=== PATIENT | male | born 1930 | race Caucasian/White ===

== ENCOUNTER 2017-01-10 14:35 | Observation (INO) | payer OTHER ==
[~2017-01-10] VITALS: Ht 170.2 cm; Wt 58.0 kg
[~2017-01-10 14:35] MED LIST: ALLO100T PO; CEPH500; DIGO.125 PO; ISOS30TA3 PO; LOVA20TA PO; MOME0.05 TOP; NITR0.4S SL; OFLO.3%A AU; OMPR20CCR PO; PROS5TAB2 PO; TAMS0.4C67 PO; TYLE3 PO
[2017-01-10 15:44] VITALS: BP 102/52; PULSE 59; RESP 18; TEMP 97.9; O2SAT 95
[2017-01-10] MEDS ORDERED: SODIUM CHLORIDE 0.9% FLUSH 10 ML FLUSH IVF PRN (15:45)
[2017-01-10 15:53] VITALS: RESP 17; O2SAT 96
[2017-01-10] MEDS ORDERED: ASPIRIN 325 MG TAB PO ONE (16:00)
--- NOTE | 2017-01-10 16:01 | PD ---
HPI Chief Complaint: Chest Pain Time Seen by Provider: 15:56 Travel History International Travel<30 days: No Contact w/Intl Traveler<30days: No Traveled to known affect area: No History of Present Illness HPI 86-year-old male that presents to the ED for evaluation of left sided chest pain. Patient came here via [facility] for evaluation of this. Patient has a significant history of heart disease having had a pacemaker as well as the fibular in place. Patient follows with Dr. Cruz. He has not seen the doctor for about 6 months. Per patient today will he was at syn[employer] he developed a severe debilitating left-sided chest pain that made him feel like he was about to passout. Per patient he did not loss consciousness. Patient gave himself a nitroglycerin was able to get out of the synagogue by himself. Ambulance was contacted and they brought him here. Ambulance gave another nitro with good resolution of the pain but did bring the blood pressure down to the gave her some fluids. Patient was not given any aspirin secondary to GI upset from aspirin. Currently patient states that his pain is minimal. He denies any shortness of breath. Denies any his head. States not taking any blood thinners. Denies any other medical problems. Denies sensation of that the defibrillator is going off. Per patient the chest pain started during synagogue about almost 2 hours ago. Patient states that he's had this chest pain before secondary to heart problems. He has no allergies to medication. He denies any other medical problem. No recent travel. No fevers chills or sweats. No nausea or vomiting. Per patient he did had sweats during the episode. PFSH Past Medical History Hx Anticoagulant Therapy: Yes Arthritis: Yes Heart Rhythm Problems: Yes (DEFIBRILLATOR) Cancer: Yes (RIGHT CHEEK REMOVED JUN 2015) Cardiac Catheterization: Yes Cardiovascular Problems: Yes (PACER) High Cholesterol: Yes Chest Pain: No Congestive Heart Failure: No Cerebrovascular Accident: No (TIA) Diabetes: Yes (BORDERLINE TYPE 11) Diminished Hearing: Yes (HEARING AID) Gastrointestinal Disorders: Yes (GERD) Glaucoma: No Hepatitis: No Hiatal Hernia: No Hypertension: Yes Reproductive: Yes (ENLARGED PROSTATE) Integumentary: No Renal Failure: Yes Thyroid Disease: No Past Surgical History Cardiac Surgery: Yes Coronary Artery Bypass Graft: No Genitourinary Surgery: Yes Pacemaker: Yes ([employer] MODEL# [id number] Serial# [id number]) Social History Alcohol Use: No Tobacco Use: No Substance Use: No Allergies-Medications (Allergen,Severity, Reaction): Coded Allergies: No Known Allergies (Verified , 01/10/17) Reported Meds & Prescriptions Reported Meds & Active Scripts Active Keflex 500 mg Cap (Cephalexin Monohydrate) 500 Mg Cap 500 Mg .XX TID Tylenol #3 (Acetaminophen/Codeine Phosphate) 1 Tab Tab 1 Tab PO Q4H PRN Reported Floxin (Ofloxacin) 0.3 % Soln 10 Drop AU BID 10 Days Elocon Cream (Mometasone Furoate) 0.1 % Cr 1 Applic TOP DAILY Lovastatin 20 Mg Tab 20 Mg PO HS Proscar (Finasteride) 5 Mg Tab 5 Mg PO DAILY Prilosec 20 Mg Cap (Omeprazole) 20 Mg Capcr 20 Mg PO DAILY Allopurinol 100 Mg Tab 100 Mg PO DAILY Flomax (Tamsulosin HCl) 0.4 Mg Cap 0.4 Mg PO HS Isosorbide Mononitrate Er (Isosorbide Mononitrate) 30 Mg Tab 30 Mg PO DAILY Nitrostat (Nitroglycerin) 0.4 Mg Subl 0.4 Mg SL DIRECTED 1 TAB SL EVERY 5 MINS X 3 PRN CHEST PAIN Lanoxin (Digoxin) 0.125 Mg Tab 0.125 Mg PO DAILY Review of Systems General / Constitutional: No: Fever, Chills, Weight Gain, Weight Loss, Other Eyes: No: Diploplia, Blurred Vision, Photophobia, Drainage, Redness, Foreign Body Sensation, Pain, Tearing, Blind Spots, Visual changes, Blindness, Other HENT: No: Headaches, Vertigo, Lightheadedness, Sore Throat, Rhinitis, Rhinorrhea, Congestion, Nosebleed, Neck Stiffness, Neck Pain, Masses, Gingival Bleeding, Dental Difficulties, Ear Discharge, Earache, Other Cardiovascular: Positive: Chest Pain or Discomfort, Diaphoresis, Syncope, No: Palpitations, Irregular Rhythm, Tachycardia, Dyspnea on exertion, Varicosities, Edema, Cyanosis, Varicosities, Phlebitis, Claudication, Other Respiratory: No: Cough, Shortness of Breath, Wheezing, Sneezing, Orthopnea, Hemoptysis, Stridor, Night Sweats, Pleuritic Pain, Other Gastrointestinal: No: Nausea, Vomiting, Diarrhea, Abdominal Pain, Hematemesis, Hematochezia, Constipation, Changes in Bowel Habits, Indigestion, Dysphagia, Loss of Appetite, Other Genitourinary: No: Urgency, Frequency, Dysuria, Nocturia, Hematuria, Decreased Urinary Output, Oliguria, Hesitancy, Dribbling, Incontinence, Pelvic Pain, Flank Pain, Dyspareunia, Discharge, Dysmenorrhea, Menorrhagia, Metorrhagia, Vaginal Bleeding, Other Musculoskeletal: No: Myalgias, Arthralgias, Limited ROM, Weakness, Cramping, Edema, Pain, Atrophy, Other Skin: No Rash, No Itching, No Dryness, No Lumps, No Hives, No Change in Pigmentation, No Change in nails, No Alopecia, No Lesions, No Breast Lumps, No Breast Tenderness, No Breast Swelling, No Other Neurologic: No: Weakness, Dizziness, Syncope, Focal Abnormalities, Coordination Problem, Tremor, Ataxia, Headache, Change in Mentation, Slurred Speech, Paresthesia, Incontinence, Seizures, Sensory Disturbance, Other Psychiatric: No: Anxiety, Depression, Suicidal Ideations, Disorder of Thought, Mood Disorder, Substance Abuse, Homicidal Ideation, Other Endocrine: No: Heat Intolerance, Cold Intolerance, Polyuria, Polydipsia, Other Hematologic/Lymphatic: No: Easy Bruising, Lymph Node Enlargement, Other Physical Exam Narrative GENERAL: SKIN: Warm and dry. HEAD: Atraumatic. Normocephalic. EYES: Pupils equal and round. No scleral icterus. No injection or drainage. ENT: No nasal bleeding or discharge. Mucous membranes pink and moist. Tongue is midline. No uvula deviation. NECK: Trachea midline. No JVD. CARDIOVASCULAR: Regular rate and rhythm. No obvious murmurs, S3, S4. Chest pain is not reproducible with touch. RESPIRATORY: No accessory muscle use. Clear to auscultation. Breath sounds equal bilaterally. GASTROINTESTINAL: Abdomen soft, non-tender, nondistended. Hepatic and splenic margins not palpable. MUSCULOSKELETAL: Extremities without clubbing, cyanosis, or edema. No obvious deformities. Full range of motion of the upper and lower extremities bilaterally. 2+ pulses bilaterally. NEUROLOGICAL: Awake and alert. No obvious cranial nerve deficits. Motor grossly within normal limits. Five out of 5 muscle strength in the arms and legs. Normal speech. PSYCHIATRIC: Appropriate mood and affect; insight and judgment normal. Data Data Last Documented VS Vital Signs Date Time Temp Pulse Resp B/P Pulse Ox O2 Delivery O2 Flow Rate FiO2 01/10/17 15:53 96 Room Air 01/10/17 15:53 17 01/10/17 15:44 97.9 59 102/52 Orders Electrocardiogram (01/10/17 15:45) Basic Metabolic Panel (Bmp) (01/10/17 15:45) B-Type Natriuretic Peptide (01/10/17 15:45) Ckmb (Isoenzyme) Profile (01/10/17 15:45) Complete Blood Count With Diff (01/10/17 15:45) Magnesium (Mg) (01/10/17 15:45) Prothrombin Time / Inr (Pt) (01/10/17 15:45) Act Partial Throm Time (Ptt) (01/10/17 15:45) Troponin I (01/10/17 15:45) Chest, Single Ap (01/10/17 15:45) Ecg Monitoring (01/10/17 15:45) Bilateral Bp Monitoring (01/10/17 15:45) Iv Access Insert/Monitor (01/10/17 15:45) Oximetry (01/10/17 15:45) Oxygen Administration (01/10/17 15:45) Sodium Chloride 0.9% Flush (Ns Flush) (01/10/17 15:45) Aspirin (Aspirin) (01/10/17 16:00) Labs Laboratory Tests Test 01/10/17 16:00 White Blood Count 8.9 TH/MM3 Red Blood Count 3.74 MIL/MM3 Hemoglobin 10.9 GM/DL Hematocrit 33.1 % Mean Corpuscular Volume 88.5 FL Mean Corpuscular Hemoglobin 29.1 PG Mean Corpuscular Hemoglobin 32.8 % Concent Red Cell Distribution Width 14.0 % Platelet Count 218 TH/MM3 Mean Platelet Volume 7.3 FL Neutrophils (%) (Auto) 76.1 % Lymphocytes (%) (Auto) 15.0 % Monocytes (%) (Auto) 6.3 % Eosinophils (%) (Auto) 2.2 % Basophils (%) (Auto) 0.4 % Neutrophils # (Auto) 6.7 TH/MM3 Lymphocytes # (Auto) 1.3 TH/MM3 Monocytes # (Auto) 0.6 TH/MM3 Eosinophils # (Auto) 0.2 TH/MM3 Basophils # (Auto) 0.0 TH/MM3 CBC Comment DIFF FINAL Differential Comment Prothrombin Time 11.0 SEC Prothromb Time International 1.0 RATIO Ratio Activated Partial 28.1 SEC Thromboplast Time Sodium Level 141 MEQ/L Potassium Level 4.8 MEQ/L Chloride Level 110 MEQ/L Carbon Dioxide Level 24.1 MEQ/L Anion Gap 7 MEQ/L Blood Urea Nitrogen 32 MG/DL Creatinine 1.92 MG/DL Estimat Glomerular Filtration 34 ML/MIN Rate Random Glucose 100 MG/DL Calcium Level 8.3 MG/DL Magnesium Level 2.0 MG/DL Total Creatine Kinase 79 U/L Troponin I 0.02 NG/ML MDM Medical Decision Making Medical Screen Exam Complete: Yes Emergency Medical Condition: Yes Medical Record Reviewed: Yes Interpretation(s) EKG shows showed paced rhythm with no sign of acute ischemia or arrhythmia noted by me and attending. CBC & BMP Diagram 01/10/17 16:00 Troponin and CK-MB negative. Last Impressions Chest X-Ray 01/10/17 1545 Signed Impressions: Service Date/Time: Tuesday, January 10, 2017 15:49 - CONCLUSION: 1. No acute findings. No significant change since July 2015. Ra Bowers MD Differential Diagnosis A typical chest pain versus chest pain versus heart failure versus syncope versus presyncope Narrative Course 86-year-old male that presents to the ED for evaluation of chest pain. Patient was properly examined and was found to have signs and symptoms concerning for ACS. He does have a history of this. Condition this time is for labs and imaging. Patient had resolution of pain with nitroglycerin. Labs and imaging showed no sign of acute disease. At this time patient was reassured. Patient does have significant, rate this. Patient had relief with nitroglycerin. I believe the patient will likely benefit from admission as he does have high risk factors for heart disease. Patient agrees with this plan. Family agrees with this plan as well. Patient will be admitted to the medical team for chest pain evaluation. [facility] paged. Dr. Hernandez agrees to admission. Diagnosis Primary Impression: Chest pain in adult Admitting Information Admitting Physician Requests: Observation Stephan Blair Jan 10, 2017 16:01 Stephan Blair Jan 10, 2017 16:01
--- NOTE | 2017-01-10 16:41 | RADRPT ---
EXAM DATE/TIME: 01/10/2017 15:49 [facility] COMPARISON: CHEST SINGLE AP, July 18, 2015, 11:02. INDICATIONS : Chest pain. MEDICAL HISTORY : None. SURGICAL HISTORY : Pacemaker. ENCOUNTER: Initial ACUITY: 1 day PAIN SCORE: 0/10 LOCATION: Bilateral chest FINDINGS: Pacer leads overlie right atrium and right ventricle and probably coronary sinus. Heart size mildly e nlarged. Mildly tortuous aorta. No dense consolidation or significant effusion. No pneumothorax. Calc ified granuloma right upper lobe. CONCLUSION: 1. No acute findings. No significant change since July 2015. Ra Bowers MD on January 10, 2017 at 16:38 Board Certified Radiologist. This report was verified electronically.
[2017-01-10 16:51] LABS: AUTOMATED NEUTROPHIL # 6.7 TH/MM3 (1.8-7.7); BASOPHIL % 0.4 % (0.0-2.0); EOSINOPHIL # 0.2 TH/MM3 (0-0.4); EOSINOPHIL % 2.2 % (0.0-4.0); HEMATOCRIT 33.1 % (39.0-51.0); HEMO FLAGS DIFF FINAL; LYMPHOCYTE # 1.3 TH/MM3 (1.0-4.8); MEAN CELL VOLUME 88.5 FL (80.0-100.0); MEAN CORPUSCULAR HEMOGLOBIN 29.1 PG (27.0-34.0); MEAN CORPUSCULAR HGB CONC 32.8 % (32.0-36.0); MONO % 6.3 % (0.0-8.0); NEUT % 76.1 % (16.0-70.0); PLATELET COUNT 218 TH/MM3 (150-450); RED BLOOD COUNT 3.74 MIL/MM3 (4.50-5.90); WHITE BLOOD COUNT 8.9 TH/MM3 (4.0-11.0)
[2017-01-10 17:08] LABS: APTT (PATIENT) 28.1 SEC (24.3-30.1); BICARBONATE 24.1 MEQ/L (21.0-32.0); POTASSIUM 4.8 MEQ/L (3.5-5.1)
--- NOTE | 2017-01-10 17:53 | PD ---
Physical Exam Date Seen by Provider: Jan 10, 2017 Time Seen by Provider: 16:25 Narrative 86-year-old male with history of pacemaker, presents today with after having chest pain while at [employer]. Patient took nitroglycerin and called 911. The patient is nearly pain-free at this time. He denies any diaphoresis nausea vomiting, there are no other complaints time my examination. Data Data Last Documented VS Vital Signs Date Time Temp Pulse Resp B/P Pulse Ox O2 Delivery O2 Flow Rate FiO2 01/10/17 15:53 96 Room Air 01/10/17 15:53 17 01/10/17 15:44 97.9 59 102/52 Orders Electrocardiogram (01/10/17 15:45) Basic Metabolic Panel (Bmp) (01/10/17 15:45) B-Type Natriuretic Peptide (01/10/17 15:45) Ckmb (Isoenzyme) Profile (01/10/17 15:45) Complete Blood Count With Diff (01/10/17 15:45) Magnesium (Mg) (01/10/17 15:45) Prothrombin Time / Inr (Pt) (01/10/17 15:45) Act Partial Throm Time (Ptt) (01/10/17 15:45) Troponin I (01/10/17 15:45) Chest, Single Ap (01/10/17 15:45) Ecg Monitoring (01/10/17 15:45) Bilateral Bp Monitoring (01/10/17 15:45) Iv Access Insert/Monitor (01/10/17 15:45) Oximetry (01/10/17 15:45) Oxygen Administration (01/10/17 15:45) Sodium Chloride 0.9% Flush (Ns Flush) (01/10/17 15:45) Aspirin (Aspirin) (01/10/17 16:00) Labs Laboratory Tests Test 01/10/17 16:00 White Blood Count 8.9 TH/MM3 Red Blood Count 3.74 MIL/MM3 Hemoglobin 10.9 GM/DL Hematocrit 33.1 % Mean Corpuscular Volume 88.5 FL Mean Corpuscular Hemoglobin 29.1 PG Mean Corpuscular Hemoglobin 32.8 % Concent Red Cell Distribution Width 14.0 % Platelet Count 218 TH/MM3 Mean Platelet Volume 7.3 FL Neutrophils (%) (Auto) 76.1 % Lymphocytes (%) (Auto) 15.0 % Monocytes (%) (Auto) 6.3 % Eosinophils (%) (Auto) 2.2 % Basophils (%) (Auto) 0.4 % Neutrophils # (Auto) 6.7 TH/MM3 Lymphocytes # (Auto) 1.3 TH/MM3 Monocytes # (Auto) 0.6 TH/MM3 Eosinophils # (Auto) 0.2 TH/MM3 Basophils # (Auto) 0.0 TH/MM3 CBC Comment DIFF FINAL Differential Comment Prothrombin Time 11.0 SEC Prothromb Time International 1.0 RATIO Ratio Activated Partial 28.1 SEC Thromboplast Time Sodium Level 141 MEQ/L Potassium Level 4.8 MEQ/L Chloride Level 110 MEQ/L Carbon Dioxide Level 24.1 MEQ/L Anion Gap 7 MEQ/L Blood Urea Nitrogen 32 MG/DL Creatinine 1.92 MG/DL Estimat Glomerular Filtration 34 ML/MIN Rate Random Glucose 100 MG/DL Calcium Level 8.3 MG/DL Magnesium Level 2.0 MG/DL Total Creatine Kinase 79 U/L Troponin I 0.02 NG/ML MDM Medical Record Reviewed: Yes Supervised Visit with LEE ANN: Yes Narrative Course 86 year-old gentleman with history of paced rhythm, coronary disease, renal sufficiency, presents today after having an episode of chest pain while at [employer]. Patient states he took nitroglycerin which resolved his pain. He has One used aspirin at this time. EKG shows paced rhythm. Cardiac enzymes are within normal limits. Creatinine is elevated at this time. He does have a history of chronic kidney disease. He'll be admitted to the hospitalist service to rule out. At this point we do not feel he is appropriate candidate for the chest pain center. I, Dr. White, have reviewed the advance practice practitioner's documentation and am in agreement, met with the patient face to face, made the diagnosis, and the medical decision making was done by me. *My assessment and Findings: Chest pain. Paced rhythm. Chronic kidney disease. Diagnosis Primary Impression: Chest pain in adult Additional Impressions: Paced rhythm on property assessment monitor CKD (chronic kidney disease) Torrey White MD Jan 10, 2017 17:53
[2017-01-10 18:22] VITALS: O2SAT 98
[2017-01-10] MEDS ORDERED: TAMS0.4C4 PO (18:22)
[2017-01-10] MEDS ORDERED: LEVO25TA4 PO (18:22)
[2017-01-10] MEDS ORDERED: PRIL20CA9 PO (18:22)
[2017-01-10] MEDS ORDERED: FERR325T PO (18:22)
[2017-01-10] MEDS ORDERED: MOME0.1C23 TOPICAL (18:24)
[2017-01-10] MEDS ORDERED: NITR0.4S SL (18:24)
[2017-01-10] MEDS ORDERED: ISOS30TA3 PO (18:26)
[2017-01-10] MEDS ORDERED: DIGO0.12 PO (18:26)
[2017-01-10] MEDS ORDERED: PROS5TAB PO (18:26)
[2017-01-10] MEDS ORDERED: LOVA20TA PO (18:26)
[2017-01-10] MEDS ORDERED: ALLO100T PO (18:26)
[2017-01-10] MEDS ORDERED: ONDANSETRON HCL 4 MG/2 ML VIAL IV PRN (18:30)
[2017-01-10] MEDS ORDERED: SODIUM CHLORIDE 0.9% FLUSH 10 ML FLUSH IV FLUSH PRN (18:30)
[2017-01-10] MEDS ORDERED: TEMAZEPAM 15 MG CAP PO PRN (18:30)
[2017-01-10] MEDS ORDERED: NITROGLYCERIN 0.4 MG SL 25 TABS/BTL SL PRN (18:30)
[2017-01-10] MEDS ORDERED: ALPRAZolam 0.25 MG TAB PO PRN (18:30)
[2017-01-10] MEDS ORDERED: ACETAMINOPHEN 500 MG CPLT PO PRN (18:30)
--- NOTE | 2017-01-10 18:35 | HHI.HP ---
HPI Service [facility] Primary Care Physician Unknown Admission Diagnosis chest pain, r/o ACS Diagnoses: Chief Complaint: Chest pain Travel History International Travel<30 Days: No Contact w/Intl Traveler <30 Da: No Traveled to Known Affected Are: No History of Present Illness This is an 86-year-old male with a PMH which includes: systolic CHF s/p pacemaker/defibrillation placement, CKD, GERD, hypothyroidism, and hyperlipidemia and BPH. The patient presents to the ED for evaluation of left sided chest pain. Per patient today will he was at [employer] he developed a severe debilitating left-sided stabbing chest pain that made him feel like he was about to pass out. The chest pain was associated with diaphoresis and SOB. Per patient he did not loss consciousness. Pain decreased with nitroglycerin 03/27. Ambulance was contacted and they brought him here. Ambulance gave another nitro which relieved the chest pain. Patient was not given any aspirin secondary to GI upset from aspirin. Currently patient states that he is chest pain free. He denies any shortness of breath. Denies sensation of that the defibrillator is going off. Patient reports that he has had this chest pain before secondary to heart problems. Review of Systems Except as stated in HPI: all other systems reviewed are Neg Past Family Social History Past Medical History systolic CHF s/p pacemaker/defibrillation placement, CKD, GERD, hypothyroidism, and hyperlipidemia and BPH. Past Surgical History Defibrillator/Pacemaker placement Reported Medications Allopurinol 100 Mg Tab 100 Mg PO DAILY Digoxin 0.125 Mg Tab 0.125 Mg PO DAILY Proscar (Finasteride) 5 Mg Tab 5 Mg PO HS Do not crush. Isosorbide Mononitrate ER (Isosorbide Mononitrate) 30 Mg Markel 30 Mg PO DAILY Lovastatin 20 Mg Tab 20 Mg PO DAILY Mometasone Topical (Mometasone Furoate) 0.1 % Cream 1 Applic TOPICAL HS Nitrostat SL (Nitroglycerin) 0.4 Mg Subl 0.4 Mg SL DIRECTED PRN 1 tablet under the tongue as needed for chest pain. Repeat every 5 minutes for a total of 3 DOSES or call 911 if NO relief. Prilosec (Omeprazole) 20 Mg Cap 20 Mg PO DAILY Tamsulosin (Tamsulosin HCl) 0.4 Mg Cap 0.4 Mg PO BID Ferrous Sulfate 325 Mg Tab 325 Mg PO DAILY Levothyroxine (Levothyroxine Sodium) 25 Mcg Tab 25 Mcg PO DAILY Allergies: Coded Allergies: No Known Allergies (Verified , 01/10/17) Active Ordered Medications Current Medications Medications (Trade) Dose Ordered Sig/Main Route Start Time Stop Time Status Last Admin (NS Flush) 2 ml UNSCH PRN IVF 01/10/17 15:45 (NS Flush) 2 ml UNSCH PRN IV FLUSH 01/10/17 18:30 UNV (NS Flush) 2 ml BID IV FLUSH 01/10/17 21:00 UNV (Tylenol) 500 mg Q4H PRN PO 01/10/17 18:30 UNV (Zofran Inj) 4 mg Q6H PRN IV 01/10/17 18:30 UNV (Protonix) 40 mg DAILY PO 01/10/17 18:30 UNV (Nitrostat Sl) 0.4 mg Q5M PRN SL 01/10/17 18:30 UNV (Aspirin) 325 mg DAILY PO 01/11/17 09:00 UNV (Restoril) 15 mg HS PRN PO 01/10/17 18:30 UNV (Xanax) 0.25 mg Q8H PRN PO 01/10/17 18:30 UNV (Heparin Inj) 5,000 units Q8H SQ 01/10/17 18:30 UNV Family History Sister had secondary to heart disease at 85 Physical Exam Vital Signs Vital Signs Date Time Temp Pulse Resp B/P Pulse Ox O2 Delivery O2 Flow Rate FiO2 01/10/17 15:53 96 Room Air 01/10/17 15:53 17 96 Room Air 01/10/17 15:44 97.9 59 18 102/52 95 Physical Exam GENERAL: This is a well-nourished, well-developed patient, in no apparent distress. SKIN: No rashes, ecchymoses or lesions. Cool and dry. EYES: Extraocular motions intact. No scleral icterus. No injection or drainage. CARDIOVASCULAR: Regular rate and rhythm without murmurs, gallops, or rubs. RESPIRATORY: Clear to auscultation. Breath sounds equal bilaterally. No wheezes , rales, or rhonchi. GASTROINTESTINAL: Abdomen soft, non-tender, nondistended. MUSCULOSKELETAL: Extremities without clubbing, cyanosis, or edema. No joint tenderness, effusion, or edema noted. No calf tenderness. Negative Homans sign bilaterally. NEUROLOGICAL: Awake and alert. no focal deficits. Motor and sensory grossly within normal limits. Five out of 5 muscle strength in all muscle groups. Normal speech. Laboratory Laboratory Tests Test 01/10/17 16:00 White Blood Count 8.9 Red Blood Count 3.74 Hemoglobin 10.9 Hematocrit 33.1 Mean Corpuscular Volume 88.5 Mean Corpuscular Hemoglobin 29.1 Mean Corpuscular Hemoglobin 32.8 Concent Red Cell Distribution Width 14.0 Platelet Count 218 Mean Platelet Volume 7.3 Neutrophils (%) (Auto) 76.1 Lymphocytes (%) (Auto) 15.0 Monocytes (%) (Auto) 6.3 Eosinophils (%) (Auto) 2.2 Basophils (%) (Auto) 0.4 Neutrophils # (Auto) 6.7 Lymphocytes # (Auto) 1.3 Monocytes # (Auto) 0.6 Eosinophils # (Auto) 0.2 Basophils # (Auto) 0.0 CBC Comment DIFF FINAL Differential Comment Prothrombin Time 11.0 Prothromb Time International 1.0 Ratio Activated Partial 28.1 Thromboplast Time Sodium Level 141 Potassium Level 4.8 Chloride Level 110 Carbon Dioxide Level 24.1 Anion Gap 7 Blood Urea Nitrogen 32 Creatinine 1.92 Estimat Glomerular Filtration 34 Rate Random Glucose 100 Calcium Level 8.3 Magnesium Level 2.0 Total Creatine Kinase 79 Troponin I 0.02 Result Diagram: 01/10/17 1600 01/10/17 1600 Imaging Last Impressions Chest X-Ray 01/10/17 1545 Signed Impressions: Service Date/Time: Tuesday, January 10, 2017 15:49 - CONCLUSION: 1. No acute findings. No significant change since July 2015. Ra Bowers MD Assessment and Plan Assessment and Plan This is an 86-year-old male with a PMH which includes: systolic CHF s/p pacemaker/defibrillation placement, CKD, GERD, hypothyroidism, and hyperlipidemia and BPH. The patient presents to the ED for evaluation of left sided chest pain Chest pain R/O ACS serial troponin EKG reviewed by myself and Dr. Hernandez reveals paced rhythm telemetry monitoring Lipid profile in AM, continue Lovastatin at this time Chronic systolic CHF S/P pacemaker/ defibrillator placement- stable Cardiomyopathy CKD- continue to monitor renal function avoid nephrotoxic agents Chronic stable conditions include GERD, hyperlipidemia, hypothyroidism and BPH- continue home Prilosec, Lovastatin, Synthroid, Tamsulosin and Proscar DVT prophylaxis with heparin Discussed with patient, family at bedside and ER provider Written by Abby Julian, acting as scribe for Dr. Hernandez on 01/10/17 at 18:52. Attending Statement All or portions of this note were transcribed by scribe Abby Julian. I , Dr. Charles Dewitt personally performed the history, physical exam, and medical decision making; and confirmed the accuracy of the information in the transcribed note. Authenticated by Dr. Charles Dewitt on 01/17/17 at 23:53. Abby Julian Jan 10, 2017 18:35 Charles Francis MD Jan 17, 2017 23:53
[2017-01-10] MEDS: PANTOPRAZOLE SOD 40 MG DELAYED RELEASE TAB PO SCH (19:20)
[2017-01-10 19:51] VITALS: BP 106/52; PULSE 59; RESP 20; O2SAT 97
[2017-01-10] MEDS: SODIUM CHLORIDE 0.9% FLUSH 10 ML FLUSH IV FLUSH SCH (21:00)
[2017-01-10] MEDS ORDERED: FINASTERIDE 5 MG TAB PO SCH (21:00)
[2017-01-10 21:07] LABS: CREATINE KINASE 79 U/L (39-308)
[2017-01-10 22:05] LABS: AUTOMATED NEUTROPHIL # 7.2 TH/MM3 (1.8-7.7); BASOPHIL % 0.5 % (0.0-2.0); EOSINOPHIL # 0.1 TH/MM3 (0-0.4); EOSINOPHIL % 1.3 % (0.0-4.0); HEMATOCRIT 31.8 % (39.0-51.0); HEMO FLAGS DIFF FINAL; LYMPH % 16.1 % (9.0-44.0); LYMPHOCYTE # 1.6 TH/MM3 (1.0-4.8); MEAN CORPUSCULAR HEMOGLOBIN 29.8 PG (27.0-34.0); MEAN CORPUSCULAR HGB CONC 33.5 % (32.0-36.0); MONO % 8.1 % (0.0-8.0); PLATELET COUNT 229 TH/MM3 (150-450); RED BLOOD COUNT 3.57 MIL/MM3 (4.50-5.90); RED CELL DISTRIBUTION WIDTH 13.8 % (11.6-17.2); WHITE BLOOD COUNT 9.7 TH/MM3 (4.0-11.0)
[2017-01-10 22:25] LABS: ANION GAP 7 MEQ/L (5-15); BLOOD UREA NITROGEN 32 MG/DL (7-18); CHLORIDE 111 MEQ/L (98-107); GLOMERULAR FILTRATION RATE 34 ML/MIN (>89); POTASSIUM 4.8 MEQ/L (3.5-5.1); SODIUM (NA) 142 MEQ/L (136-145)
[2017-01-10 22:30] LABS: CREATINE KINASE 73 U/L (39-308)
[2017-01-10] MEDS: HEPARIN SODIUM - SQ 10,000 UNITS/ML VIAL SQ SCH (23:07)
[2017-01-10] MEDS: TAMSULOSIN HCL 0.4 MG CAP PO SCH (23:07)
[2017-01-11] VITALS (8 sets, daily range): BP systolic 97–130; BP diastolic 49–63; PULSE 59–67; RESP 18–20; TEMP 97.8–98.8; O2SAT 95–97
[2017-01-11] MEDS: HEPARIN SODIUM - SQ 10,000 UNITS/ML VIAL SQ SCH ×2 (06:01→14:00)
[2017-01-11 08:04] LABS: HDL CHOLESTEROL 27.7 MG/DL (40.0-60.0)
[2017-01-11] MEDS: TAMSULOSIN HCL 0.4 MG CAP PO SCH (09:00)
[2017-01-11] MEDS ORDERED: PRAVASTATIN SOD 20 MG TAB PO SCH (09:00)
[2017-01-11] MEDS ORDERED: ALLOPURINOL 100 MG TAB PO SCH (09:00)
[2017-01-11] MEDS ORDERED: FERROUS SULFATE 325 MG (65 MG ELEMENTAL IRON) TAB PO SCH (09:00)
[2017-01-11] MEDS ORDERED: PANTOPRAZOLE SOD 20 MG DELAYED RELEASE TAB PO SCH (09:00)
[2017-01-11] MEDS ORDERED: LEVOTHYROXINE SODIUM 25 MCG TAB PO SCH (09:00)
[2017-01-11] MEDS ORDERED: DIGOXIN 0.125 MG TAB PO SCH (09:00)
[2017-01-11] MEDS ORDERED: ISOSORBIDE MONONITRATE 30 MG TAB PO SCH (09:00)
[2017-01-11] MEDS ORDERED: ASPIRIN 325 MG TAB PO SCH (09:00)
[2017-01-11] MEDS: PANTOPRAZOLE SOD 40 MG DELAYED RELEASE TAB PO SCH (09:38)
[2017-01-11] MEDS: SODIUM CHLORIDE 0.9% FLUSH 10 ML FLUSH IV FLUSH SCH (09:44)
--- NOTE | 2017-01-11 15:28 | HHI.PR ---
Subjective Remarks denies cp/sob denies cough Objective Vitals Vital Signs Date Time Temp Pulse Resp B/P Pulse Ox O2 Delivery O2 Flow Rate FiO2 01/11/17 13:33 98.4 60 18 117/58 95 01/11/17 09:36 130/63 01/11/17 08:31 98.0 67 20 122/58 95 01/11/17 04:50 97.8 62 18 121/57 97 01/11/17 00:26 98.8 60 18 97/49 97 01/11/17 00:00 59 01/10/17 19:51 59 20 106/52 97 Room Air 01/10/17 18:22 98 21 01/10/17 15:53 96 Room Air 01/10/17 15:53 17 96 Room Air 01/10/17 15:44 97.9 59 18 102/52 95 Result Diagram: 01/10/17211901/10/172119 Imaging Last Impressions Chest X-Ray 01/10/17 1545 Signed Impressions: Service Date/Time: Tuesday, January 10, 2017 15:49 - CONCLUSION: 1. No acute findings. No significant change since July 2015. Ra Bowers MD Objective Remarks GENERAL: This is a well-nourished, well-developed patient, in no apparent distress. SKIN: No rashes, ecchymoses or lesions. Cool and dry. EYES: Extraocular motions intact. No scleral icterus. No injection or drainage. CARDIOVASCULAR: Regular rate and rhythm without murmurs, gallops, or rubs. RESPIRATORY: Clear to auscultation. Breath sounds equal bilaterally. No wheezes , rales, or rhonchi. GASTROINTESTINAL: Abdomen soft, non-tender, nondistended. MUSCULOSKELETAL: Extremities without clubbing, cyanosis, or edema. No joint tenderness, effusion, or edema noted. No calf tenderness. Negative Homans sign bilaterally. NEUROLOGICAL: Awake and alert. no focal deficits. Motor and sensory grossly within normal limits. Five out of 5 muscle strength in all muscle groups. Normal speech. Medications and IVs Current Medications Medications (Trade) Dose Ordered Sig/Main Route Start Time Stop Time Status Last Admin (NS Flush) 2 ml UNSCH PRN IV FLUSH 01/10/17 18:30 (NS Flush) 2 ml BID IV FLUSH 01/10/17 21:00 01/11/17 09:44 (Tylenol) 500 mg Q4H PRN PO 01/10/17 18:30 (Zofran Inj) 4 mg Q6H PRN IV 01/10/17 18:30 (Protonix) 40 mg DAILY PO 01/10/17 18:30 01/11/17 09:38 (Nitrostat Sl) 0.4 mg Q5M PRN SL 01/10/17 18:30 (Aspirin) 325 mg DAILY PO 01/11/17 09:00 01/11/17 09:39 (Restoril) 15 mg HS PRN PO 01/10/17 18:30 (Xanax) 0.25 mg Q8H PRN PO 01/10/17 18:30 (Heparin Inj) 5,000 units Q8H SQ 01/10/17 22:00 01/11/17 06:01 (Zyloprim) 100 mg DAILY PO 01/11/17 09:00 01/11/17 09:39 (Lanoxin) 0.125 mg DAILY PO 01/11/17 09:00 01/11/17 09:39 (Ferrous Sulfate) 325 mg DAILY PO 01/11/17 09:00 01/11/17 09:38 (Proscar) 5 mg HS PO 01/10/17 21:00 01/10/17 23:07 (Imdur) 30 mg DAILY PO 01/11/17 09:00 01/11/17 09:43 (Synthroid) 25 mcg DAILY PO 01/11/17 09:00 01/11/17 09:39 (Pravachol) 20 mg DAILY PO 01/11/17 09:00 01/11/17 09:39 (Flomax) 0.4 mg BID PO 01/10/17 21:00 01/10/17 23:07 (Protonix) 20 mg DAILY PO 01/11/17 09:00 Urinary Catheter: No Vascular Central Line Catheter: No A/P Problem List: (1) Chest pain ICD Code: R07.9 Status: Acute Plan: Placed on observation for chest pain rule out ACS. Chest pain has resolved and ACS has been ruled out with troponins negative 3. Cardiology consulted. Dr. higgins discussed the case with RN, he is not planning on any intervention or further testing. Recommended PT eval since is concerned that the patient does not walk much. I will consult PT (2) Paced rhythm on prevention coordinator ICD Code: Z78.9 Status: Acute Plan: EKG showed paced rhythm. Continue to monitor telemetry (3) Hx of cardiomyopathy ICD Code: Z86.79 Status: Acute Plan: Continue telemetry. (4) CKD (chronic kidney disease), stage III ICD Code: N18.3 Status: Acute Plan: Continue to monitor BUN/creatinine. Creatinine at around 1.8. Assessment and Plan Chronic stable conditions include GERD, hyperlipidemia, hypothyroidism and BPH- continue home Prilosec, Lovastatin, Synthroid, Tamsulosin and Proscar Discharge Planning Discharged today after PT eval. Problem Qualifiers (1) Chest pain: Charles Francis MD Jan 11, 2017 15:28
--- NOTE | 2017-01-11 17:33 | HHI.DCPOC ---
Discharge Care Plan Diagnosis: (1) Chest pain (2) Hx of cardiomyopathy (3) Paced rhythm on customer service specialist Goals to Promote Your Health * To prevent worsening of your condition and complications * To maintain your health at the optimal level Directions to Meet Your Goals Take your medications as prescribed Follow your dietary instruction Follow activity as directed Keep your appointments as scheduled Take your immunizations and boosters as scheduled If your symptoms worsen call your PCP, if no PCP go to Urgent Care Center or Emergency Room Smoking is Dangerous to Your Health. Avoid second hand smoke Call the 24-hour hour crisis hotline for domestic abuse at Charles Francis MD Jan 11, 2017 17:33
--- NOTE | 2017-01-11 17:37 | HHI.DS ---
Discharge Summary Admission Date Jan 10, 2017 at 18:10 Discharge Date: Jan 11, 2017 Admitting Diagnosis chest pain, r/o ACS (1) Chest pain ICD Code: R07.9 Diagnosis: Principal (2) Paced rhythm on case monitor ICD Code: Z78.9 Diagnosis: Principal (3) Hx of cardiomyopathy ICD Code: Z86.79 Diagnosis: Principal (4) CKD (chronic kidney disease), stage III ICD Code: N18.3 Diagnosis: Principal Procedures none Brief History - From Admission This is an 86-year-old male with a PMH which includes: systolic CHF s/p pacemaker/defibrillation placement, CKD, GERD, hypothyroidism, and hyperlipidemia and BPH. The patient presents to the ED for evaluation of left sided chest pain. Per patient today [facility] developed a severe debilitating left-sided stabbing chest pain that made him feel like he was about to pass out. The chest pain was associated with diaphoresis and SOB. Per patient he did not loss consciousness. Pain decreased with nitroglycerin 03/27. Ambulance was contacted and they brought him here. Ambulance gave another nitro which relieved the chest pain. Patient was not given any aspirin secondary to GI upset from aspirin. Currently patient states that he is chest pain free. He denies any shortness of breath. Denies sensation of that the defibrillator is going off. Patient reports that he has had this chest pain before secondary to heart problems. CBC/BMP: 01/10/17211901/10/172119 Significant Findings Laboratory Tests Test 01/10/17 01/10/17 01/10/17 01/11/17 16:00 20:30 21:20 07:20 Red Blood Count 3.74 MIL/MM3 3.57 MIL/MM3 (4.50-5.90) (4.50-5.90) Hemoglobin 10.9 GM/DL 10.6 GM/DL (13.0-17.0) (13.0-17.0) Hematocrit 33.1 % 31.8 % (39.0-51.0) (39.0-51.0) Neutrophils (%) (Auto) 76.1 % 74.0 % (16.0-70.0) (16.0-70.0) Chloride Level 110 MEQ/L 111 MEQ/L (98-107) (98-107) Blood Urea Nitrogen 32 MG/DL (7-18) 32 MG/DL (7-18) Creatinine 1.92 MG/DL 1.88 MG/DL (0.60-1.30) (0.60-1.30) Estimat Glomerular Filtration 34 ML/MIN (>89) 34 ML/MIN (>89) Rate Calcium Level 8.3 MG/DL 8.1 MG/DL (8.5-10.1) (8.5-10.1) Troponin I LESS THAN 0.02 LESS THAN 0.02 NG/ML NG/ML (0.02-0.05) (0.02-0.05) Monocytes (%) (Auto) 8.1 % (0.0-8.0) Random Glucose 110 MG/DL (74-106) HDL Cholesterol 27.7 MG/DL (40.0-60.0) Imaging Last Impressions Chest X-Ray 01/10/17 1545 Signed Impressions: Service Date/Time: Tuesday, January 10, 2017 15:49 - CONCLUSION: 1. No acute findings. No significant change since July 2015. Ra Bowers MD PE at Discharge GENERAL: This is a well-nourished, well-developed patient, in no apparent distress. SKIN: No rashes, ecchymoses or lesions. Cool and dry. EYES: Extraocular motions intact. No scleral icterus. No injection or drainage. CARDIOVASCULAR: Regular rate and rhythm without murmurs, gallops, or rubs. RESPIRATORY: Clear to auscultation. Breath sounds equal bilaterally. No wheezes , rales, or rhonchi. GASTROINTESTINAL: Abdomen soft, non-tender, nondistended. MUSCULOSKELETAL: Extremities without clubbing, cyanosis, or edema. No joint tenderness, effusion, or edema noted. No calf tenderness. Negative Homans sign bilaterally. NEUROLOGICAL: Awake and alert. no focal deficits. Motor and sensory grossly within normal limits. Five out of 5 muscle strength in all muscle groups. Normal speech. Hospital Course (1) Chest pain Placed on observation for chest pain rule out ACS. Chest pain has resolved and ACS has been ruled out with troponins negative 3. Cardiology consulted. Dr. higgins discussed the case with RN, he is not planning on any intervention or further testing. concerned patient not walking much at home ---> PT consulted ---> No home PT recommended. (2) Paced rhythm on case monitor EKG showed paced rhythm. Continue to monitor telemetry (3) Hx of cardiomyopathy Monitored on telemetry. (4) CKD (chronic kidney disease), stage III Plan: Continue to monitor BUN/creatinine. Creatinine at baseline. Good urine output. Bun/creatinine monitored during patient's stay. Assessment and Plan Chronic stable conditions include GERD, hyperlipidemia, hypothyroidism and BPH- continue home Prilosec, Lovastatin, Synthroid, Tamsulosin and Proscar Pt Condition on Discharge: Stable Discharge Disposition: Discharge Home Discharge Time: <= 30 minutes Discharge Instructions DIET: Follow Instructions for: Heart Healthy Diet Activities you can perform: Regular-No Restrictions Activities to Avoid: Strenuous Activity Follow up Referrals: PCP Follow-up - 1 Week Continued Medications: Allopurinol (Allopurinol) 100 Mg Tab 100 MG PO DAILY Gout #30 Ref 0 TAB Digoxin (Digoxin) 0.125 Mg Tab 0.125 MG PO DAILY Regulate Heart Beat #30 Ref 0 TAB Ferrous Sulfate (Ferrous Sulfate) 325 Mg Tab 325 MG PO DAILY Nutritional Supplement #30 Ref 0 TAB Finasteride (Proscar) 5 Mg Tab 5 MG PO HS Do not crush. Manage Prostate Problems #30 Ref 0 TAB Isosorbide Mononitrate ER (Isosorbide Mononitrate ER) 30 Mg Markel 30 MG PO DAILY Prevent Chest Pain #30 Ref 0 TAB Levothyroxine (Levothyroxine) 25 Mcg Tab 25 MCG PO DAILY Thyroid #30 Ref 0 TAB Lovastatin (Lovastatin) 20 Mg Tab 20 MG PO DAILY Cholesterol Management #30 Ref 0 TAB Mometasone Topical (Mometasone Topical) 0.1 % Cream 1 APPLIC TOPICAL HS #1 Ref 0 TUBE Nitroglycerin SL (Nitrostat SL) 0.4 Mg Subl 0.4 MG SL DIRECTED 1 tablet under the tongue as needed for chest pain. Repeat every 5 minutes for a total of 3 DOSES or call 911 if NO relief. PRN CHEST PAIN #100 Ref 0 TAB.SL Omeprazole (Prilosec) 20 Mg Cap 20 MG PO DAILY #30 Ref 0 CAP Tamsulosin (Tamsulosin) 0.4 Mg Cap 0.4 MG PO BID Manage Prostate Problems #30 Ref 0 CAP Charles Francis MD Jan 11, 2017 17:37
--- NOTE | 2017-01-11 18:03 | EKG ---
Date Performed: 01/10/2017 Time Performed: 15:52:17 PTAGE: 86 years EKG: ELECTRONIC ATRIAL PACEMAKER ELECTRONIC VENTRICULAR PACEMAKER Atrial pacing, is now noted, a nd QRS configuration has changed Since prior tracing. Clinical corrolation is suggested. ABNORMAL RHY THM ECG PREVIOUS TRACING : 10/09/2015 09.10 DOCTOR: Van Hernandez Interpretating Date/Time 01/11/2017 18:01:58
== END 2017-01-11 18:00 | disposition home or self-care (01) ==
LOC: NEPE 14:35 → NEDA 18:10 → NEPHCDU 22:20
PROVIDERS: ADMIT Hospitalist; ATTEND Hospitalist
DX: R07.9 Chest pain, unspecified (principal); I13.0 Hypertensive heart and chronic kidney disease with heart failure and stage 1 through stage 4 chronic kidney disease, or unspecified chronic kidney disease; N18.3 Chronic kidney disease, stage 3 (moderate); I50.20 Unspecified systolic (congestive) heart failure; E11.22 Type 2 diabetes mellitus with diabetic chronic kidney disease; I42.9 Cardiomyopathy, unspecified; K21.9 Gastro-esophageal reflux disease without esophagitis; E03.9 Hypothyroidism, unspecified; E78.5 Hyperlipidemia, unspecified; N40.0 Benign prostatic hyperplasia without lower urinary tract symptoms; M19.90 Unspecified osteoarthritis, unspecified site; E78.00 Pure hypercholesterolemia, unspecified; Z95.810 Presence of automatic (implantable) cardiac defibrillator
CPT/HCPCS: 71010; 80048; 80061; 82550; 83735; 83880; 84484; 85025; 85610; 85730; 93005; 97162; 99285; G0378; G8987; G8988; J1644

== ENCOUNTER 2017-08-23 14:57 | Emergency (ER) | payer OTHER ==
[~2017-08-23] VITALS: Ht 170.2 cm; Wt 55.5 kg
[~2017-08-23 14:57] MED LIST changes: -CEPH500; -DIGO.125 PO; +DIGO0.12 PO; +FERR325T PO; +LEVO25TA4 PO; -MOME0.05 TOP; +MOME0.1C23 TOPICAL; -OFLO.3%A AU; -OMPR20CCR PO; +PRIL20CA9 PO; +PROS5TAB PO; -PROS5TAB2 PO; +TAMS0.4C4 PO; -TAMS0.4C67 PO; -TYLE3 PO
[2017-08-23 15:34] VITALS: BP 122/59; PULSE 76; RESP 16; TEMP 97.8; O2SAT 97
--- NOTE | 2017-08-23 15:56 | PD ---
HPI Chief Complaint: Skin Problem Time Seen by Provider: 15:49 Travel History International Travel<30 days: No Contact w/Intl Traveler<30days: No Traveled to known affect area: No History of Present Illness HPI This is an 86 year old male who presents to the emergency department with rash for one week, increasing in size, 10/10 in pain, sharp and constant. Pt. denies any other fevers, chills, or shortness of breath. Pt. was prescribed bactrim and doxycycline and he has been taking it but it makes him nauseous. 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 BUT HAS HAD BLEEDING PROBLEM IN PAST ) Hypertension: Yes Immune Disorder: No Psychiatric: No Reproductive: Yes (ENLARGED PROSTATE) Respiratory: No Integumentary: No Radiation Therapy: No Renal Failure: Yes Thyroid Disease: No Past Surgical History Body Medical Devices: pacer/ defibrillator Cardiac Surgery: Yes Coronary Artery Bypass Graft: No Genitourinary Surgery: Yes Pacemaker: Yes ([employer] MODEL# [id number] Serial# [id number]) Social History Alcohol Use: No Tobacco Use: No Substance Use: No Allergies-Medications (Allergen,Severity, Reaction): Coded Allergies: No Known Allergies (Verified Adverse Reaction, Unknown, 08/23/17) Reported Meds & Prescriptions Reported Meds & Active Scripts Active Reported Vitamin B-12 (Cyanocobalamin) 1,000 Mcg Subl 1,000 Mcg SL DAILY Calcium 600 with Vitamin D (Calcium Carbonate-Cholecalciferol) 600-400 mg-Unit Tab 1 Tab PO DAILY Glucosamine 1,500 Mg Tab 1,500 Mg PO DAILY Carvedilol 3.125 Mg Tab 3.125 Mg PO BID Ferrous Sulfate 325 Mg (65 Mg Iron) Tablet 325 Mg PO DAILY Omeprazole 20 Mg Tab 20 Mg PO DAILY Allopurinol 100 Mg Tab 100 Mg PO DAILY Digoxin 0.125 Mg Tab 0.125 Mg PO DAILY Proscar (Finasteride) 5 Mg Tab 5 Mg PO HS Do not crush. Isosorbide Mononitrate ER (Isosorbide Mononitrate) 30 Mg Markel 30 Mg PO DAILY Lovastatin 20 Mg Tab 20 Mg PO DAILY Nitrostat SL (Nitroglycerin) 0.4 Mg Subl 0.4 Mg SL DIRECTED PRN 1 tablet under the tongue as needed for chest pain. Repeat every 5 minutes for a total of 3 DOSES or call 911 if NO relief. Tamsulosin (Tamsulosin HCl) 0.4 Mg Cap 0.4 Mg PO BID Levothyroxine (Levothyroxine Sodium) 25 Mcg Tab 25 Mcg PO DAILY Review of Systems Except as stated in HPI: all other systems reviewed are Neg Physical Exam Narrative GENERAL:Well appearing, no acute distress SKIN: vesicular rash over the left anterior chest with lesions at different stages. HEAD: Atraumatic. Normocephalic. EYES: Pupils equal and round. No injection or drainage. ENT: Moist mucous membranes NECK: Trachea midline. CARDIOVASCULAR: Regular rate and rhythm. No murmur appreciated. RESPIRATORY: Clear to auscultation. Breath sounds equal bilaterally. GASTROINTESTINAL: Abdomen soft, non-tender, nondistended. MUSCULOSKELETAL: No obvious deformities. NEUROLOGICAL: Awake and alert. No obvious cranial nerve deficits. Moving all extremities. PSYCHIATRIC: Appropriate mood and affect; insight and judgment normal. Data Data Last Documented VS Vital Signs Date Time Temp Pulse Resp B/P (MAP) Pulse Ox O2 Delivery O2 Flow Rate FiO2 08/23/17 15:34 97.8 76 16 122/59 (80) 97 MDM Medical Decision Making Medical Screen Exam Complete: Yes Emergency Medical Condition: Yes Interpretation(s) Afebrile, no tachycardia, normotensive Differential Diagnosis Shingles, impetigo, cellulitis, abscess Narrative Course This is an 86-year-old male who presents to the emergency department with a painful rash on the left side of his chest over his AICD. Rash is vesicular in nature. I suspect it is shingles. Patient will be placed on an antiviral, gabapentin and prescribe lidocaine patches and can follow-up with his primary care physician later this week. Diagnosis Primary Impression: Shingles Qualified Codes: B02.9 - Zoster without complications Patient Instructions: General Instructions Additional Instructions: If you develop spreading of your rash, fevers, chills or chest pain return to the emergency department. Follow up with your primary care physician later this week for a recheck. Med/Other Pt SpecificInfo: Prescription(s) given Scripts Lidocaine Patch 12 HR (Lidocaine Patch 12 HR) 5 % Patch 1 PATCH TOPICAL DAILY Y for PAIN, #1 BOX 0 Refills Remove patch after 12 hours Prov: Jennifer Perez MD 08/23/17 Gabapentin (Gabapentin) 100 Mg Cap 100 MG PO TID, #45 CAP 0 Refills Prov: Jennifer Perez MD 08/23/17 Valacyclovir (Valacyclovir) 1,000 Mg Tab 1000 MG PO TID for Mgmt Viral Infection for 7 Days, TAB 0 Refills Prov: Jennifer Perez MD 08/23/17 Disposition: 01 DISCHARGE HOME Condition: Stable Jennifer Perez MD Aug 23, 2017 15:56
[2017-08-23] MEDS ORDERED: FERR325T18 PO (16:04)
[2017-08-23] MEDS ORDERED: CARV3.12 PO (16:04)
[2017-08-23] MEDS ORDERED: CALC1TAB87 PO (16:04)
[2017-08-23] MEDS ORDERED: GLUC15009 PO (16:04)
[2017-08-23] MEDS ORDERED: VITA100021 SL (16:04)
[2017-08-23] MEDS ORDERED: OMEP20TA93 PO (16:04)
[2017-08-23] MEDS ORDERED: LIDO1PAD52 TOPICAL (16:09)
[2017-08-23] MEDS ORDERED: GABA100C4 PO (16:09)
[2017-08-23] MEDS ORDERED: VALA1TAB PO (16:09)
== END 2017-08-23 16:30 | disposition home or self-care (01) ==
LOC: PHED 14:57
DX: B02.9 Zoster without complications (principal); I10 Essential (primary) hypertension; R73.03 Prediabetes; N19 Unspecified kidney failure; E78.00 Pure hypercholesterolemia, unspecified; H91.90 Unspecified hearing loss, unspecified ear; Z79.01 Long term (current) use of anticoagulants; Z95.810 Presence of automatic (implantable) cardiac defibrillator; Z87.39 Personal history of other diseases of the musculoskeletal system and connective tissue; Z86.79 Personal history of other diseases of the circulatory system; Z87.19 Personal history of other diseases of the digestive system; Z87.438 Personal history of other diseases of male genital organs
CPT/HCPCS: 99284